=== PATIENT | female | born 1980 | race Caucasian/White ===

== ENCOUNTER 2016-06-16 11:03 | Emergency (ER) | payer BC ==
[2016-06-16 11:36] VITALS: BP 133/74; PULSE 71; RESP 16; TEMP 99; O2SAT 99
--- NOTE | 2016-06-16 12:08 | ED PDOC ---
HPI: Female Pain Time Seen by Provider: 06/16/16 11:10 Chief Complaint (Nursing): Female Genitourinary Chief Complaint (Provider): , 6 weeks, vaginal spotting since yesterday History Per: Patient History/Exam Limitations: no limitations Onset/Duration Of Symptoms: Days Current Symptoms Are (Timing): Still Present Severity: None Additional Complaint(s): Pt denies pain. PT states she saw Dr. Caicedo last week prior to spotting. Abnormal Vaginal Bleeding: Yes Past Medical History Reviewed: Historical Data, Nursing Documentation, Vital Signs Vital Signs: Last Vital Signs Temp 99.0 F 06/16/16 11:33 Pulse 71 06/16/16 11:33 Resp 16 06/16/16 11:33 BP 133/74 06/16/16 11:33 Pulse Ox 99 06/16/16 11:33 - Medical History PMH: Hypothyroidism - Surgical History Surgical History: No Surg Hx - Family History Family History: States: Unknown Family Hx - Living Arrangements Living Arrangements: With Family - Social History Current smoker - smoking cessation education provided: No - Home Medications Home Medications: Ambulatory Orders Medication Instructions Recorded Levothyroxine [Synthroid] 75 mcg PO DAILY 06/16/16 - Allergies Allergies/Adverse Reactions: Allergies Allergy/AdvReac Type Severity Reaction Status Date / Time No Known Allergies Allergy Verified 06/16/16 11:36 Review of Systems ROS Statement: Except As Marked, All Systems Reviewed And Found Negative Genitourinary Female: Positive for: Vaginal Bleeding, Pelvic Pain Physical Exam - Reviewed Nursing Documentation Reviewed: Yes Vital Signs Reviewed: Yes - Physical Exam Appears: Positive for: Well, Non-toxic, No Acute Distress Head Exam: Positive for: ATRAUMATIC, NORMAL INSPECTION, NORMOCEPHALIC Skin: Positive for: Normal Color, Warm, DRY Eye Exam: Positive for: Normal appearance ENT: Positive for: Normal ENT Inspection Neck: Positive for: Normal, Painless ROM Cardiovascular/Chest: Positive for: Regular Rate, Rhythm Respiratory: Positive for: Normal Breath Sounds. Negative for: Accessory Muscle Use, Respiratory Distress Gastrointestinal/Abdominal: Positive for: Normal Exam, Bowel Sounds, Soft. Negative for: Tenderness Back: Positive for: Normal Inspection Extremity: Positive for: Normal ROM Neurologic/Psych: Positive for: Alert, Oriented - Laboratory Results Result Diagrams: 06/16/16 11:58 04/10/17 11:58 - ECG O2 Sat by Pulse Oximetry: 99 Medical Decision Making Medical Decision Making: US - 5w6d consistent with LMP. (+) FHT on US U.Dip normal Disposition - Clinical Impression Clinical Impression: Spotting affecting in first trimester - Patient ED Disposition Is Patient to be Admitted: No Counseled Patient/Family Regarding: Diagnosis, Need For Followup - Disposition Referrals: [facility] [Outside] Disposition: Routine/Home Disposition Time: 14:59 Condition: GOOD Instructions: (ED)
[2016-06-16 12:25] LABS: ALB/GLOB RATIO 1.2 (1.0-2.1); ALKALINE PHOSPHATASE 52 U/L (38-126); ALT/SGPT 23 U/L (9-52); AST/SGOT 28 U/L (14-36); BILIRUBIN,TOTAL 0.4 mg/dl (0.2-1.3); BLOOD UREA NITROGEN 14 mg/dl (7-17); CALCIUM 10.1 mg/dL (8.4-10.2); CARBON DIOXIDE 21 mmol/L (22-30); CHLORIDE 103 mmol/L (98-107); GFR AFRICAN-AMERICAN > 60; GLUCOSE,RANDOM 88 mg/dL (65-105); POTASSIUM 4.9 MMOL/L (3.6-5.0); SODIUM 140 mmol/l (132-148)
[2016-06-16 12:52] LABS: MEAN CELL VOLUME 86.5 fl (81.0-99.0); MEAN CORPUSCULAR HEMOGLOBIN 29.5 pg (27.0-31.0); MEAN CORPUSCULAR HGB CONC 34.1 g/dL (33.0-37.0); RED CELL DISTRIBUTION WIDTH 11.8 % (11.5-14.5); WHITE BLOOD COUNT 7.5 K/uL (4.8-10.8)
--- NOTE | 2016-06-16 14:44 | US ---
OB ultrasound dated 06/16/2016. History: Vaginal bleeding. . Transvaginal sonographic evaluation of the pelvis performed. Findings: The uterus is anteverted measuring approximately 7.3 x 3.2 x 5.7 cm. Cervix is closed measuring 4.1 cm. There is a gestational sac within the endometrial canal Measurements: Gestational sac: MSD = 1.33 cm = 5 weeks 4 days Yolk sac: 0.3 pole: CRL = 0.35 cm = 6 weeks 0 days Average ultrasound age: 5 weeks 6 days +/-0 weeks 3 days Heart motion: Detected at 161 BPM. Trace amount of free fluid seen in the cul de sac. Right ovary is not visualized. Left ovary measures 2.8 x 2.4 x 1 8 cm and contains a small anechoic structure that measures approximately 1.7 x 1.5 x 1.6 cm that may represent corpus luteum cyst of . . Impression: Single living intrauterine gestation with average ultrasound age of approximately 5 weeks 6 days +/-0 weeks 3 days. Heart rate detected at 16:21 BPM. Small amount of free fluid in the cul de sac. Cervix is closed.
== END 2016-06-16 15:19 | disposition home or self-care (01) ==
LOC: H.ER 11:03
DX: O26.851 Spotting complicating pregnancy, first trimester (principal); Z3A.01 Less than 8 weeks gestation of pregnancy

== ENCOUNTER 2017-01-31 14:14 | Inpatient (IN) | payer BC, OTHER ==
[2017-01-31 14:39] VITALS: BMI 28.7
[2017-01-31] MEDS ORDERED: ceFAZolin IV 1 gm in Dextrose 1 GM/50 ML BAG IVPB ONE (14:46)
[2017-01-31] MEDS ORDERED: Lactated Ringer's 1,000 ML IV SCH ×2 (15:00)
[2017-01-31 15:52] LABS: BASO % 0.3 % (0.0-2.0); EOS # 0.2 K/uL (0.0-0.7); EOS % 2.3 % (0.0-4.0); HEMATOCRIT 38.7 % (34.0-47.0); LYMPH # 1.6 K/uL (1.0-4.3); MEAN CELL VOLUME 87.7 fl (81.0-99.0); MEAN CORPUSCULAR HGB CONC 33.1 g/dL (33.0-37.0); MEAN PLATELET VOLUME 11.7 fl (7.2-11.7); MONO # 0.7 K/uL (0.0-0.8); MONO % 6.7 % (0.0-10.0); NEUT # 8.1 K/uL (1.8-7.0); NEUT % 75.7 % (50.0-75.0); NRBC % 0.1 % (0.0-0.0); RED CELL DISTRIBUTION WIDTH 13.3 % (11.5-14.5); WHITE BLOOD COUNT 10.7 K/uL (4.8-10.8)
[2017-01-31 15:55] VITALS: TEMP 98.3
--- NOTE | 2017-01-31 16:21 | OBHP ---
Datetime: 01/31/2017 15:16 IP Adm Impression: Term, intrauterine ; No Active Labor; Intact Membranes Admit Comment, IP Provider: CC: I am having ctx HPI: 36 YO [id number] @ 38.5wks IUP (SANDRA 02/09 by LMP) presents to [facility] for ctx. Pt states that her ctx started around 9am this morning and were initailly occasional and mild in intensity. Over the course of the day, her ctx have become more regular and are more intense. Currently, pt endorses ctx every 2-4 mins. Of note, pt states that on her last u/s baby was found to be in breech presentation. Pt endorses g ood FM, no LOF and no VB. : Dr. Caicedo OBHx: 2x EAB, last u/s 01/26/17 appreciatd, shows baby in breech presentation. GynHx: denies hx of STIs, normal pap PMH: hypothyroidism SurgHx: denies FH: hx of CAD, HTN and DM in father and HTN in mother SH: , denies smoking, ETOH and illicit drug use Meds: PNV and synthroid 75mg daily Allergies: NKDA PE Vitals: stable Gen: NAD cardio: S1S2 no M/G/R Resp: vesicular breathing b/l Abdomen: gravid, NT, BS+ Neuro: AAO x 3 Ext: no edema, NT FM: 135-moderate variability- catagory I Bedside u/s: breech presentation Assessment/Plan: 36YO @ 38.5wks IUP is admitted for active labor. Baby is found in breech presentation, last P O intake was at 1:30Pm today, pt had a few straberries. HIV neg, RPR neg, GBS neg. -admit for -NPO -IV fluids -ancef 1gm -blood work -continue FM -vitals Pt seen and discussed with Dr. Sascha Bruner, PGY I OB Hospitalist on-call. With PGY1, I saw and examined Shayla. will admit to L_D. Anesthesia con sult. Will give Terbultaine one dose. Check labs. Conditoin and modes of delivey discussed with natasha castle. She understands and her questions answered. Agree with above note ex she is in LATENT PHASE O F LABOR Pelvic Type - PN: Adequate Extremities - PN: Normal Abdomen - PN: Normal Back - PN: Not Done Breast - PN: Not Done Lungs - PN: Normal Heart - PN: Normal Thyroid - PN: Not Done Neurologic - PN: Normal HEENT - PN: Normal General - PN: Normal FHR - Baseline A Provider: 150 Membranes, Provider: Intact Pool Provider: Negative IP Hx Assessment: The History has been Reviewed and is Current EGA AdmitDate IP: 38.5 Vital Signs Provider: Reviewed; Within Normal Limits IP Chief Complaint: Uterine contractions NICHD Variability Prov Fetus A: Moderate 6-25bpm NICHD Accel Fetus A IP Provider: [id number] FHR Category Provider Fetus A: Category I Dilatation, Provider: 1-2 Effacement, Provider: long Station, Provider: high Genitourinary Exam: Normal DTRs - PN: Not Done Datetime: 01/31/2017 15:01 IP Admit Plan: Admit to unit; Initiate Section protocol; Observation/Evaluation Presentation-Admit: Breech
[2017-01-31] MEDS ORDERED: Oxytocin 30 UNITS in Sodium Chloride 0.9% 500 ML IV ONE (16:38)
[2017-01-31] MEDS ORDERED: Morphine 5 mg/10 ml preservative-free Inj(Duramorph) ONE (19:11)
[2017-01-31] MEDS ORDERED: ePHEDrine 50 mg/ml Inj ONE (19:11)
[2017-01-31] MEDS ORDERED: Phenylephrine 10 mg/ml Inj ONE (19:12)
[2017-01-31] MEDS ORDERED: Cellulose Hemostat 2X3 Sheet ONE ×2 (21:13)
[2017-01-31] MEDS ORDERED: DiphenhydrAMINE 50 mg/ml Inj IVP PRN (22:01)
[2017-02-01] MEDS: Simethicone 80 mg Chewtab PO SCH ×4 (04:00→22:59)
[2017-02-01] MEDS: Levothyroxine 75 MCG TAB PO SCH (06:16)
[2017-02-01 09:00] LABS: HEMATOCRIT 28.3 % (34.0-47.0); MEAN CELL VOLUME 87.3 fl (81.0-99.0); MEAN CORPUSCULAR HEMOGLOBIN 29.4 pg (27.0-31.0); MEAN CORPUSCULAR HGB CONC 33.7 g/dL (33.0-37.0); RED CELL DISTRIBUTION WIDTH 13.2 % (11.5-14.5); WHITE BLOOD COUNT 12.4 K/uL (4.8-10.8)
--- NOTE | 2017-02-01 17:55 | OBPPN ---
Datetime: 02/01/2017 17:50 PP Pain Prov: Within normal limits PP Nausea Prov: Denies PP Flatus Prov: Yes PP BM Prov: No PP Breasts Prov: Normal PP Heart Prov: Normal PP Lungs Prov: Normal PP Abdomen/Uterus Prov: Normal PP Lochia Prov: Normal PP Vulva/Perineum Prov: Normal PP CVA Tenderness Prov: Normal PP Extremities Prov: Normal PP Progress Prov: Normal PP Comments Phys Exam Prov: Uterus firm bel umb Pt requesting to not remove dressing until later today No DCT bilaterally PP Impression Prov: Normal progression PP Plan Prov: Continue present management PP Progress Note Prov: POD #1 s/p 1'C/S -- recovering well Pain control Regular diet OOB/Ambulate Mcgee out Venodynes while in bed Continue current management IP PP Procedures: None Vital Signs Provider PP: Reviewed; Within Normal Limits Datetime: 02/01/2017 10:40 PP C/S Incision Prov: Normal
[2017-02-01] MEDS: Oxycodone/Acetaminophen 5/325 mg Tab PO PRN ×2 (18:27→22:59)
[2017-02-02] MEDS: Simethicone 80 mg Chewtab PO SCH ×5 (02:07→22:02)
[2017-02-02] MEDS: Levothyroxine 75 MCG TAB PO SCH (06:11)
[2017-02-02] MEDS: Oxycodone/Acetaminophen 5/325 mg Tab PO PRN (11:08)
--- NOTE | 2017-02-02 12:54 | OBPPN ---
Datetime: 02/02/2017 12:50 PP Pain Prov: Within normal limits PP Nausea Prov: Denies PP Flatus Prov: Yes PP Breasts Prov: Normal PP Heart Prov: Normal PP Lungs Prov: Normal PP Abdomen/Uterus Prov: Normal PP Lochia Prov: Normal PP Vulva/Perineum Prov: Normal PP CVA Tenderness Prov: Normal PP Extremities Prov: Normal PP Comments Phys Exam Prov: funsus firm under umbilicus incision clean/dry/intact PP Impression Prov: Normal progression PP Plan Prov: Continue present management PP Progress Note Prov: Patient denies CP, no SOB, no N/V, tolerating PO diet, ambulating/voiding wel l, mild lochia, abdominal pain tolerable with meds A/P POD #2 1. Encourage ambulation and 2. Percocet/Motrin prn pain 3. Colace prn constipation 4. Continue orders IP PP Procedures: None
[2017-02-03] MEDS: Simethicone 80 mg Chewtab PO SCH ×2 (03:49→09:07)
[2017-02-03] MEDS: Levothyroxine 75 MCG TAB PO SCH (06:20)
--- NOTE | 2017-02-03 16:55 | OBPPN ---
Datetime: 02/03/2017 10:00 PP Pain Prov: Within normal limits PP Nausea Prov: Denies PP Flatus Prov: Yes PP BM Prov: Yes PP Breasts Prov: Normal PP Heart Prov: Normal PP Lungs Prov: Normal PP Abdomen/Uterus Prov: Normal PP Lochia Prov: Normal PP Vulva/Perineum Prov: Normal PP CVA Tenderness Prov: Normal PP Extremities Prov: Normal PP Progress Note Prov: She had a few epidosdes of tachycardia. No SOB. no Dizziness. Ambulating without diff A: S/P C section day 3 anemia - currently asymtpmatic PLAN qwill discharge home with Fe...Motrin and Percoset. Follow up in 1-2w Vital Signs Provider PP: Reviewed; Within Normal Limits
--- NOTE | 2017-02-03 16:55 | OBDCSUM ---
Datetime: 02/03/2017 11:18 Discharged to, Provider: Home Follow up at, Provider: [facility] Disch Instr Activity: Normal activity; May be up to bathroom; May be up for meals; May Shower Disch Instr Diet: Regular Discharge Diagnosis, Provider: Term Delivered Discharge Time: 02/03/2017 12:00 Follow up in weeks, Provider: in one to two weeks Disch Referrals: None Disch Activity Restrictions: No lifting; No sexual activity; Nothing in vagina - Gann, tampon s, douche
[2017-02-03 19:32] VITALS: BP 129/76; PULSE 104; RESP 20; O2SAT 99
--- NOTE | 2017-02-05 08:49 | OP ---
PROCEDURE DATE: 01/31/2017 PREOPERATIVE DIAGNOSES: Breech presentation, in early labor. POSTOPERATIVE DIAGNOSES: Breech presentation, in early labor. PROCEDURE: Primary low transverse section with inverted T incision. SURGEON: Familia Caicedo DO. MECHANICAL MAINTENANCE ENGINEER: Tashi Leonard MD (Dr. Leonard is a board certified MANAGER FLIGHT OPERATIONS physician, who was hospitalist in house at [facility] ([facility]3]. He was available to assist on this case. His presence was vital and necessary throughout the procedure for this difficult delivery. He was present from the time of incision to delivery to closure of the skin). TYPE OF ANESTHESIA: Spinal. ANESTHESIA ADMINISTERED BY: Chandan Ying MD. OPERATIVE FINDINGS: Infant was delivered cephalically. Apgars were 9 and 9 given at one and five minutes respectively. There was a clear amniotic fluid noted. Placenta was delivered intact manually. Ovaries and tubes appeared to be within normal limits grossly. Estimated blood loss 800 mL. All equipments, sponges and needles accounted for. She remained hemodynamically stable throughout the procedure. DESCRIPTION OF PROCEDURE: Shayla was brought to the operating room. Compression boots were placed on both lower extremities. She was given spinal anesthesia by Dr. Ying. She was placed in supine position. Mcgee catheter was placed in the bladder and left in place, it was noted to be draining clear urine. She was draped and prepped in the usual sterile manner. Once adequate anesthesia was obtained, the Pfannenstiel incision was made using a scalpel. The incision was then taken down to underlying fascia using electrocautery. Fascia was nicked in the midline and extended bilaterally using electrocautery. Inferior aspect of the fascia was grasped using two Royce clamps, tented up and the rectus muscle was both bluntly and sharply dissected using electrocautery. The same was done with the superior aspect of the fascia. In the midline superiorly, the rectus muscle was bluntly. Peritoneum was identified and tented up using 2 Gabbi clamps and then incised using Metzenbaum scissors. Incision was then extended superiorly and inferiorly with direct visualization of the bladder and intestines. A bladder blade was then inserted. The peritoneum on the uterus was then tented up on the uterus using forceps and incised using Metzenbaum scissors above the bladder line. Incision was then extended bilaterally and a bladder flap was created digitally. Bladder blade was then inserted behind the bladder flap and after a low transverse incision was made using a scalpel. This incision was then extended bilaterally using bandage scissors. Upon exploration of the uterus, it was noted to be transverse. Inverted T extension was made using bandage scissors. Attempt was made to deliver the baby breech, but ended up in a cephalic delivery. was delivered with the head first and was bulb suctioned nasopharyngeally. The remainder of the infant was then delivered as atraumatically as possible. Cord was clamped and cut. Infant was then handed to the manager of administration in attendance. Placenta was delivered intact manually. Uterus was then cleared of debris and clots. A vertical part of the incision was closed in an interlocking fashion using 0 Vicryl suture x3 layers. Thereafter, the lower uterine segment was then closed using 0 Vicryl suture in 2 layers, last layer imbricating the previous layers. Good hemostasis was assured. Copious irrigation was performed in posterior cul-de-sac. Uterus was placed back into the peritoneal cavity. Irrigation was performed again. Incision line on the uterus was noted to have good hemostasis. Surgicel was placed. Confirmation with staff and all equipment was accounted for x3. At this point, 0 Vicryl suture was then used to approximate the peritoneum in a running fashion. Hemostasis was assured. Rectus muscle was approximated using 0 Vicryl suture x3. A 0 Vicryl suture was used to approximate the fascial layer in a running fashion. Irrigation was performed. Subcuticular layer noted to have a good hemostasis, 2-0 plain suture was approximated x3. A 3-0 Vicryl suture was used to approximate the skin. Dermabond, pressure bandage and Steri-Strips were applied. All equipments, sponges and needles accounted for. Familia Caicedo DO
== END 2017-02-03 14:30 | disposition home or self-care (01) | DRG 766 ==
LOC: H.EROB2 14:14 → H.L&D 14:46 → H.OB/GYN 02-01 00:20
PROVIDERS: ADMIT Obstetrics & Gynecology; ATTEND Obstetrics & Gynecology
PROC: 10D00Z1 Extraction of Products of Conception, Low, Open Approach (ICD-10-PCS; principal; 2017-01-31)
PROC: 4A1HXCZ Monitoring of Products of Conception, Cardiac Rate, External Approach (ICD-10-PCS; 2017-01-31)
DX: O32.1XX0 Maternal care for breech presentation, not applicable or unspecified (principal); E03.9 Hypothyroidism, unspecified; O99.284 Endocrine, nutritional and metabolic diseases complicating childbirth; Z3A.38 38 weeks gestation of pregnancy; Z37.0 Single live birth